=== PATIENT | male | born 1970 | race Caucasian/White ===

== ENCOUNTER 2020-12-11 08:36 | Day surgery (SDC) | payer OTHER ==
[2020-12-08 11:54] VITALS: BMI 25.8
[~2020-12-11 08:36] MED LIST: LACTATED RINGERS 1,000 ML IV SCH; LIDOCAINE 1% (10MG/ML) FOR IV START INTRADERMA PRN
[2020-12-11] MEDS ORDERED: ONDANSETRON 4 MG/2 ML VIAL ONE (08:54)
[2020-12-11 09:04] VITALS: RESP 16; TEMP 97.7
--- NOTE | 2020-12-11 09:31 | P.GSHP ---
History of Present Illness H&P Date: 12/11/20 CHIEF COMPLAINT: Colon screen HISTORY OF PRESENT ILLNESS: The patient is a 50-year-old male who presents for colon screen. Lower endoscopy was offered for further evaluation and management. PAST MEDICAL HISTORY: Please see list. PAST SURGICAL HISTORY: Please see list. MEDICATIONS: Please see list. ALLERGIES: Please see list. SOCIAL HISTORY: No illicit drug use FAMILY HISTORY: No reports of Crohn disease or ulcerative colitis. REVIEW OF ORGAN SYSTEMS: CONSTITUTIONAL: No reports of fevers or chills. PHYSICAL EXAM: VITAL SIGNS: Stable GENERAL: Well-developed pleasant in no acute distress. HEENT: No scleral icterus. Extraocular movements grossly intact. Moist buccal mucosa. NECK: Supple without lymphadenopathy. CHEST: Unlabored respirations. Equal bilateral excursions. CARDIOVASCULAR: Regular rate and rhythm. Distal 2+ pulses. ABDOMEN: Soft, nontender, nondistended. MUSCULOSKELETAL: No clubbing, cyanosis, or edema. ASSESSMENT: 1. Colon screen. PLAN: 1. Recommend proceeding with a lower endoscopy Past Medical History Additional Past Medical History / Comment(s): hx shattered lt heel bone chronic pain History of Any Multi-Drug Resistant Organisms: None Reported Past Surgical History: Tonsillectomy Additional Past Surgical History / Comment(s): lt rotator cuff Past Anesthesia/Blood Transfusion Reactions: No Reported Reaction Smoking Status: Current every day smoker - Past Family History Father Family Medical History: Cancer Additional Family Medical History / Comment(s): testicular,colon,pancreatic cancer, diverticulitis Medications and Allergies Home Medications Medication Instructions Recorded Confirmed Type Acetaminophen [Tylenol Arthritis] 650 mg PO DAILY PRN 12/08/20 12/08/20 History Allergies Allergy/AdvReac Type Severity Reaction Status Date / Time No Known Allergies Allergy Verified 12/11/20 08:55 Surgical - Exam Vital Signs Temp Pulse Resp BP Pulse Ox 97.7 F 77 16 123/88 98 12/11/20 09:02 12/11/20 09:02 12/11/20 09:02 12/11/20 09:02 12/11/20 09:02
[2020-12-11] MEDS ORDERED: LIDOCAINE 1% INJ 10MG/ML (20 ML MDV) ONE (09:38)
[2020-12-11] MEDS ORDERED: PROPOFOL 10 MG/ML 20 ML VIAL IV ONE (09:38)
--- NOTE | 2020-12-11 10:01 | P.PCN ---
Date of Procedure: 12/11/20 Description of Procedure: PREOPERATIVE DIAGNOSIS: Family history colon cancer, father Colonoscopy screening. POSTOPERATIVE DIAGNOSIS: Family history colon cancer, father Colonoscopy screening. OPERATION: Colonoscopy to the cecum, ileocecal valve and appendiceal orifice. SURGEON: Malina Dejesus MD. ANESTHESIA: MAC. INDICATIONS: The patient is a 50-year-old male who presents for his first colonoscopy screening. Benefits and risks were described and informed consent was obtained. DESCRIPTION OF PROCEDURE: The patient had undergone Suprep tablets. The patient had been brought into the operating room and laid in the left lateral decubitus position. After adequate intravenous sedation, the rectum was examined with 2% lidocaine jelly. No external hemorrhoids were encountered. The prostate was unremarkable. The rectal tone was within normal limits. No lesions were palpated in the rectal v denny. An Olympus colonoscope was advanced until the cecum, ileocecal valve and appendiceal orifice were clearly viewed. The prep was excellent. No scattered diverticulosis was encountered. No colonic polyps were found. No evidence of focal colitis was found. Retroflexion of the scope demonstrated grade 1 internal hemorrhoids without active bleeding or inflammation. The colon was desufflated. The patient had tolerated the procedure well. Withdrawal time was over 6 minutes. FINDINGS: Aronchick preparation quality scale 1 (1-5) Internal hemorrhoids, grade 1 No external prolapsed hemorrhoids. No arteriovenous malformations. No adenomatous polyps. No focal colitis. RECOMMENDATIONS: Lower endoscopy in 2025 Plan - Discharge Summary Discharge Rx Participant: No New Discharge Prescriptions: Continue Acetaminophen [Tylenol Arthritis] 650 mg PO DAILY PRN PRN Reason: Pain Discharge Medication List Acetaminophen [Tylenol Arthritis] 650 mg PO DAILY PRN 12/08/20 [History] Follow up Appointment(s)/Referral(s): Malina Dejesus MD [STAFF PHYSICIAN] - As Needed Patient Instructions/Handouts: *Surgery [facility] - (Anesthesia) Endoscopy Discharge Instructions, Colonoscopy (DC) Activity/Diet/Wound Care/Special Instructions: Repeat colonoscopy 2025 Discharge Disposition: HOME SELF-CARE
[2020-12-11 10:31] VITALS: BP 126/82; PULSE 68
== END 2020-12-11 10:50 | disposition home or self-care (01) ==
LOC: ORWHC2ENDO 08:36
PROVIDERS: ATTEND Surgery Plastic and Reconstructive Surgery
DX: Z12.11 Encounter for screening for malignant neoplasm of colon (principal); K64.0 First degree hemorrhoids; Z80.0 Family history of malignant neoplasm of digestive organs; G89.29 Other chronic pain; Z87.81 Personal history of (healed) traumatic fracture; Z90.89 Acquired absence of other organs; Z98.890 Other specified postprocedural states; F17.200 Nicotine dependence, unspecified, uncomplicated; Z80.49 Family history of malignant neoplasm of other genital organs; Z83.79 Family history of other diseases of the digestive system
CPT/HCPCS: G0105; J2405; J2001; J2704; 45378

== ENCOUNTER → 2021-11-13 | Outpatient (CLI) | payer OTHER ==
--- NOTE | 2021-11-14 00:41 | MR ---
EXAMINATION TYPE: MR shoulder LT wo con DATE OF EXAM: 11/13/2021 COMPARISON: None HISTORY: Lt shoulder pain, muscle strain Multiplanar multiecho imaging of the left shoulder without contrast. There is mild shoulder joint effusion. There is linear increased signal in the humeral head consisten t with previous surgery. There is some thinning of the supraspinatus tendon. There is no retraction. There are areas of intrasubstance tear of the supraspinatus tendon over the top of the humeral head. The biceps tendon is intact. Subscapularis tendon appears normal. The glenoid venu appear intact. Th ere is some spurring at the AC joint with minimal subacromial impingement. The scapula is intact. IMPRESSION: Postsurgical changes at the humeral head with supraspinatus tendon repair. Intrasubstance tears of th e supraspinatus tendon without retraction or definite full thickness tear. Small shoulder joint effus ion suggestive of some mild nonspecific synovitis. Minimal subacromial impingement.
== END | disposition home or self-care (01) ==
LOC: RADMRIMAIN 07:32
PROVIDERS: ATTEND Orthopaedic Surgery
DX: M75.112 Incomplete rotator cuff tear or rupture of left shoulder, not specified as traumatic (principal); M25.412 Effusion, left shoulder; M25.812 Other specified joint disorders, left shoulder

== ENCOUNTER → 2021-12-30 | Outpatient (CLI) | payer OTHER ==
--- NOTE | 2021-12-30 15:01 | XR ---
EXAMINATION TYPE: XR KUB DATE OF EXAM: 12/30/2021 HISTORY: Pain Comparison: None. Single KUB is submitted for interpretation. Findings: Right renal calculi: Several small 2 and 3 mm calculi Right ureteral calculi: None Visualized. Left renal calculi: Several small 2 and 3 mm calculi Left ureteral calculi: None Visualized. Pelvic calcifications: phleboliths noted Bowel gas pattern is unremarkable. No free air. No mass effects. IMPRESSION: 1. Bilateral nephrolithiasis
== END | disposition home or self-care (01) ==
LOC: RADXRMAIN 14:17
PROVIDERS: ATTEND Urology
DX: N20.0 Calculus of kidney (principal)
CPT/HCPCS: 74018